=== PATIENT | female | born 1955 | race Caucasian/White ===

== ENCOUNTER → 2016-10-15 19:55 | Outpatient (CLI) | payer OTHER ==
[2014-05-13 14:29] VITALS: BMI 47.9
[~2016-10-15 19:55] MED LIST: ASPIRIN325 MG PO; DIOVAN160 MG PO; ELIQUIS5 MG PO; LIPITOR80 MG PO; LOPRESSOR25 MG PO; PEPCID20 MG PO; PLAVIX75 MG PO; RYTHMOL225 MG PO
[2016-10-15 20:49] LABS: LDL-HDL RATIO 2.1 ratio (1.5-3.5)
== END | disposition home or self-care (01) ==
LOC: D.LABREF 19:55
PROVIDERS: Internal Medicine Cardiovascular Disease
DX: E78.5 Hyperlipidemia, unspecified (principal)

== ENCOUNTER → 2019-03-06 09:41 | Outpatient (CLI) | payer MEDICARE, OTHER ==
[2014-05-13 14:29] VITALS: BMI 47.9
== END | disposition home or self-care (01) ==
LOC: D.HCCECHO 03-02 09:00 → D.HCCARDIO 03-02 09:00 → D.HCCECHO 09:41
PROVIDERS: ATTEND Internal Medicine Cardiovascular Disease
DX: I42.9 Cardiomyopathy, unspecified (principal)

== ENCOUNTER → 2020-03-16 11:11 | Outpatient (CLI) | payer MEDICARE, BC ==
[2014-05-13 14:29] VITALS: BMI 47.9
== END | disposition home or self-care (01) ==
LOC: D.HCCECHO 11:11
PROVIDERS: ATTEND Internal Medicine Cardiovascular Disease
DX: I34.0 Nonrheumatic mitral (valve) insufficiency (principal)